=== PATIENT | male | born 1985 | race Caucasian/White ===

== ENCOUNTER 2021-08-29 14:15 | Emergency (ER) | payer SELFPAY ==
[~2021-08-29] VITALS: Ht 177.8 cm; Wt 90.0 kg
[2021-08-29 14:26] VITALS: BP 130/90
== END 2021-08-29 18:03 | disposition home or self-care (01) ==
LOC: ER 14:15
DX: F10.129 Alcohol abuse with intoxication, unspecified (principal); Y90.0 Blood alcohol level of less than 20 mg/100 ml
CPT/HCPCS: 99283